=== PATIENT | female | born 1930 | race Caucasian/White ===

== ENCOUNTER → 2016-07-27 | Outpatient (CLI) | payer OTHER ==
[~2016-07-27] MED LIST: AMIODARONE; AMIODARONE HCL100 MG PO; AMIODARONE PO; AMLODIPINE-BENA1 CAP; ASPIRIN; ASPIRIN81 M2 PO; ASPIRIN81 MG PO; ATRAC-TAIN142 GM EXT; AUGMENTIN875 MG PO; BUMETANIDE2 M1 PO; BUMEX2 MG PO; CELEBREX; CERTAGEN PO; CLINDAMYCIN HC300 MG PO; COATED ASPIRIN325 M1 PO; COLACE50 MG PO; CORDARONE200 M1 PO; COUMADIN; COUMADIN2.5 MG PO; CYPROHEPTADINE H4 MG PO; FISH OIL 1,0001 CA2 PO; FISH OIL 1,0001 CAP; FISH OIL300 MG PO; GABAPENTIN300 MG PO; GENTEAL10 ML; HYDROCODON-ACE1 EAC7 PO; I-CAPS AREDS S1 EACH PO; I-CAPS WITH LU1 EACH; ICAPS AREDS SO1 EACH PO; ICAPS MV TAB1 TAB.EC PO; LASIX; LASIX PO; LEVOTHYROXINE100 MC1 PO; LITE COAT ASPI325 M1 PO; LOTREL; LOTREL 5-20 MG1 CAP PO; LOTREL PO; LOVENOX80 MG/0.8 INJ; MICRO-K; MICRO-K PO; MULTI VITAMIN1 EACH PO; MULTI-VITAMIN1 TAB; NEURONTIN300 MG PO; OMEPRAZOLE20 M1 PO; OMEPRAZOLE20 M2 PO; PRILOSEC; PRILOSEC20 M1 PO; PRILOSEC20 MG PO; SALINE FOR SEN MC; STOOL SOFTENER50 MG PO; SYNTHROID; SYNTHROID PO; SYNTHROID0.05 MG PO; SYNTHROID0.1 MG PO; THERA-TABS M C1 EACH PO; TRIAMCINOLONE; VITAMIN D 22000 UNIT PO; VITAMIN D-32000 UNI1 PO; VITAMIN D32000 UNI1 PO; VITAMIN D400 UNI2 PO
--- NOTE | ~2016-07-27 | MY11 ---
[facility] A Service of [facility] RADIOLOGY TEXT RESULTS PATIENT: NNAMDI ZHAO LOCATION: [facility] : 30 UNIT #: [id number] AGE: [address]: ISIS EDWARD DO SEX: F ORDER DR: [id number] [place] [id number] P MR#: [id number] Acc #: [id number] NAME: NNAMDI ZHAO : 1930 SEX: F STUDY DATE/TIME: 07/27/2016 15:28 UNIT: [facility] ROOM: STUDY DESCRIPTION: MY Mammogram Screening Dig Anuj Attending Physician: Isis Edward D.O. Referring Physician: Isis Edward D.O. Ordering Physician: Isis Edward D.O. Primary Care Physician: Isis Edward D.O. MEDICAL IMAGING REPORT This report is preliminary unless electronic signature is present. EXAM Bilateral digital screening mammogram with CAD DATE 07/27/2016 HISTORY Family history of breast cancer in a maternal aunt. No documented personal history of breast cancer or current complaints. COMPARISON Bilateral screening mammogram 10/09/2013, 01/25/2012, 01/15/2011 FINDINGS CC and MLO views were obtained of each breast utilizing digital technique and reviewed with an FDA-approved CAD device. Breast parenchyma is predominantly fatty replaced. Benign appearing lymph node in the posterior upper outer left breast near the left axillary region is unchanged from prior exams. No architectural distortion or suspicious clustered microcalcification. Benign round calcification subareolar left breast unchanged. IMPRESSION 1. BIRADS 1. Negative screening mammogram. Routine screening mammogram is recommended in 1 year. Patients over the age of 40 are entered into a reminder system with target due date for the next mammogram. A result letter will also be sent to the patient. BIRADS: 1, negative. [facility] A Service [facility] RADIOLOGY TEXT RESULTS PATIENT: NNAMDI ZHAO LOCATION: [facility] : 30 UNIT #: [id number] AGE: [address]: FRAN, ISIS LARA DO SEX: F ORDER DR: Dictated by... Irina Booth M.D. THIS IS AN ELECTRONICALLY VERIFIED REPORT Irina Booth M.D. at 08/01/2016 8:44 AM JOSH/senia TD: 07/27/2016 23:09 JOB #: [id number] MEDICAL IMAGING REPORT Page 1 of 1
== END | disposition home or self-care (01) ==
LOC: SMAM 07-06 14:30
DX: Z12.31 Encounter for screening mammogram for malignant neoplasm of breast (principal); Z80.3 Family history of malignant neoplasm of breast
CPT/HCPCS: G0202